=== PATIENT | female | born 2000 | race Caucasian/White ===

== ENCOUNTER 2020-01-03 12:56 | Emergency (ER) | payer OTHER ==
[~2020-01-03] VITALS: Ht 168.9 cm; Wt 87.1 kg
[2020-01-03] MEDS ORDERED: BOOSTRIX/ADACEL VACCINE (DIPHTH/PERTUSS/ACELL/TETANUS) 0.5ML SYR IM ONE (13:30)
[2020-01-03 17:25] VITALS: BP 145/77
== END 2020-01-03 17:29 | disposition home or self-care (01) ==
LOC: M ED 12:56
DX: F43.21 Adjustment disorder with depressed mood (principal); F31.89 Other bipolar disorder; F17.200 Nicotine dependence, unspecified, uncomplicated

== ENCOUNTER 2020-01-17 17:59 | Emergency (ER) | payer OTHER ==
[~2020-01-17] VITALS: Ht 172.7 cm; Wt 89.2 kg
[2020-01-17 20:11] LABS: BASO # 0.1 10^3/uL (0.0-0.2); BASO % 0.7 % (0.0-1.0); EOS # 0.5 10^3/uL (0.0-0.5); EOS % 4.2 % (0.0-3.0); HEMATOCRIT 43.6 % (36.0-47.0); HEMOGLOBIN 14.4 g/dl (12.0-15.5); LYMPH # 3.6 10^3/uL (1.5-5.0); LYMPH % 31.1 % (24.0-44.0); MEAN CORPUSCULAR HEMOGLOBIN 28.6 pg (27.0-33.0); MEAN CORPUSCULAR VOLUME 86.7 fl (80.0-96.0); MONO # 0.8 10^3/uL (0.0-0.8); MONO % 6.7 % (0.0-5.0); NEUTROPHILS # 6.5 10^3/uL (1.5-8.5); PLATELET COUNT, AUTOMATED 383 10^3/uL (150-450); RED BLOOD COUNT 5.03 10^6/uL (4.00-5.40); WHITE BLOOD COUNT 11.4 10^3/uL (4.0-10.0)
[2020-01-17] MEDS ORDERED: FLAG500T PO (21:13)
[2020-01-17] MEDS ORDERED: metroNIDAZOLE (FLAGYL) 500 MG TAB PO ONE (21:15)
[2020-01-17 21:21] VITALS: BP 131/86
[2020-01-17 21:43] LABS: CHLAMYDIA DNA AMPLIFICATION POSITIVE (NEGATIVE); GC DNA AMPLIFICATION NEGATIVE (NEGATIVE)
== END 2020-01-17 21:28 | disposition home or self-care (01) ==
LOC: M ED 17:59
DX: N76.0 Acute vaginitis (principal); F17.210 Nicotine dependence, cigarettes, uncomplicated; A56.8 Sexually transmitted chlamydial infection of other sites

== ENCOUNTER 2020-10-07 14:37 | Emergency (ER) | payer OTHER ==
[~2020-10-07] VITALS: Ht 172.7 cm; Wt 88.5 kg
[~2020-10-07 14:37] MED LIST: FLAG500T PO
[2020-10-07] MEDS ORDERED: NS 1,000 ML IV ONE (15:15)
[2020-10-07] MEDS ORDERED: KETOROLAC 30 MG/ML 1ML VIAL IV ONE (15:15)
[2020-10-07] MEDS ORDERED: ONDANSETRON 4MG/2ML VIAL IV ONE (15:15)
[2020-10-07 16:03] LABS: BASO # 0.1 10^3/uL (0.0-0.2); BASO % 0.8 % (0.0-1.0); EOS # 0.6 10^3/uL (0.0-0.5); EOS % 5.8 % (0.0-3.0); HEMATOCRIT 44.1 % (36.0-47.0); HEMOGLOBIN 14.7 g/dl (12.0-15.5); LYMPH % 30.9 % (24.0-44.0); MEAN CORPUSCULAR HEMOGLOBIN 29.6 pg (27.0-33.0); MEAN CORPUSCULAR HGB CONC 33.3 g/dl (32.0-36.5); MEAN CORPUSCULAR VOLUME 88.9 fl (80.0-96.0); MONO # 0.7 10^3/uL (0.0-0.8); MONO % 6.8 % (2.0-8.0); NEUTROPHILS # 5.3 10^3/uL (1.5-8.5); NEUTROPHILS % 55.4 % (36.0-66.0); PLATELET COUNT, AUTOMATED 357 10^3/uL (150-450); RED BLOOD COUNT 4.96 10^6/uL (4.00-5.40); WHITE BLOOD COUNT 9.5 10^3/uL (4.0-10.0)
[2020-10-07 16:26] LABS: ALBUMIN 4.4 GM/DL (3.2-5.2); ALT/SGPT 23 U/L (12-78); BILIRUBIN,DIRECT 0.1 MG/DL (0.0-0.2); BILIRUBIN,TOTAL 0.3 MG/DL (0.2-1.0); LIPASE 94 U/L (73-393); TOTAL PROTEIN 8.1 GM/DL (6.4-8.2)
[2020-10-07 17:00] LABS: HCG, SERUM QUANTITATIVE < 1.0 MIU/ML
[2020-10-07] MEDS ORDERED: ISOVUE-370 76% 100ML VIAL As Ordered ONE (17:16)
--- NOTE | 2020-10-07 17:53 | REPVR ---
PROCEDURE INFORMATION: Exam: CT Abdomen And Pelvis With Contrast Exam date and time: 10/07/2020 5:28 PM Age: 20 years old Clinical indication: Abdominal pain; Localized; Right lower quadrant (rlq); Additional info: Rlq pain TECHNIQUE: Imaging protocol: Computed tomography of the abdomen and pelvis with contrast. Axial, coronal and sagittal reformatted images were created and reviewed. Radiation optimization: All CT scans at this facility use at least one of these dose optimization techniques: automated exposure control; mA and/or kV adjustment per patient size (includes targeted exams where dose is matched to clinical indication); or iterative reconstruction. Contrast material: ISOVUE 370; Contrast volume: 75 ml; Contrast route: INTRAVENOUS (IV); COMPARISON: No relevant prior studies available. FINDINGS: Liver: Unremarkable. Gallbladder and bile ducts: Status post cholecystectomy. No biliary ductal dilatation. Pancreas: Unremarkable. Spleen: Unremarkable. Adrenal glands: Normal. No mass. Kidneys and ureters: No mass. No radiodense calculi. No hydronephrosis. Stomach and bowel: Moderate amount of retained stool in the colon. No obstruction. No bowel wall thickening. No pneumatosis. Appendix: Normal. Intraperitoneal space: No free fluid. No organized fluid collection. No free air. Vasculature: Unremarkable. No aneurysm. Lymph nodes: No pathologically enlarged lymph nodes. Urinary bladder: Unremarkable as visualized. Reproductive: 4.3 x 3 cm right adnexal cystic lesion. Bones/joints: No acute osseous abnormality. Soft tissues: Tiny, fat containing umbilical hernia. IMPRESSION: 1. 4.3 x 3 cm right adnexal cystic lesion. If clinically indicated, pelvic ultrasound may be obtained for further evaluation. 2. Additional findings, as above. Electronically signed by: Pablo Atwood On 10/07/2020 17:53:05 PM
[2020-10-07 18:54] VITALS: BP 124/73
[2020-10-08] MEDS ORDERED: MOTR200T44 PO (12:48)
[2020-10-08] MEDS ORDERED: ADDE20CA3 PO (12:48)
[2020-10-08] MEDS ORDERED: HYDR-3713 PO (15:02)
== END 2020-10-07 19:06 | disposition home or self-care (01) ==
LOC: M ED 14:37
DX: N83.291 Other ovarian cyst, right side (principal); E27.9 Disorder of adrenal gland, unspecified; E66.9 Obesity, unspecified; F41.9 Anxiety disorder, unspecified; F32.9 Major depressive disorder, single episode, unspecified; F17.200 Nicotine dependence, unspecified, uncomplicated
CPT/HCPCS: 74177; 80047; 80076; 81001; 83690; 84702; 85025; 96361; 96374; 96375; 99284; J1885; J2405; Q9967

== ENCOUNTER 2020-10-08 12:29 | Emergency (ER) | payer OTHER ==
[~2020-10-08] VITALS: Ht 172.7 cm; Wt 90.4 kg
[2020-10-08] MEDS ORDERED: MOTR200T44 PO (12:48)
[2020-10-08] MEDS ORDERED: ADDE20CA3 PO (12:48)
[2020-10-08 13:19] LABS: BASO # 0.1 10^3/uL (0.0-0.2); BASO % 0.6 % (0.0-1.0); EOS # 0.5 10^3/uL (0.0-0.5); EOS % 4.5 % (0.0-3.0); HEMATOCRIT 39.7 % (36.0-47.0); HEMOGLOBIN 13.3 g/dl (12.0-15.5); LYMPH # 2.6 10^3/uL (1.5-5.0); LYMPH % 23.2 % (24.0-44.0); MEAN CORPUSCULAR HEMOGLOBIN 29.2 pg (27.0-33.0); MEAN CORPUSCULAR HGB CONC 33.5 g/dl (32.0-36.5); MEAN CORPUSCULAR VOLUME 87.3 fl (80.0-96.0); MONO # 0.7 10^3/uL (0.0-0.8); MONO % 6.5 % (2.0-8.0); NEUTROPHILS # 7.2 10^3/uL (1.5-8.5); NEUTROPHILS % 64.8 % (36.0-66.0); PLATELET COUNT, AUTOMATED 341 10^3/uL (150-450); RED BLOOD COUNT 4.55 10^6/uL (4.00-5.40)
[2020-10-08 13:49] LABS: ALBUMIN 3.9 GM/DL (3.2-5.2); ALT/SGPT 21 U/L (12-78); BILIRUBIN,DIRECT 0.1 MG/DL (0.0-0.2); BILIRUBIN,TOTAL 0.4 MG/DL (0.2-1.0); HCG, SERUM QUANTITATIVE < 1.0 MIU/ML; LIPASE 97 U/L (73-393); TOTAL PROTEIN 7.3 GM/DL (6.4-8.2)
[2020-10-08] MEDS ORDERED: KETOROLAC 60MG 2ML VIAL IM ONE (13:50)
--- NOTE | 2020-10-08 14:05 | REP ---
INDICATION: R pelvic pain, pos HCG, 4.3 cm adnexal mass on ct yest. COMPARISON: Abdomen/pelvis CT dated 10/07/2020. TECHNIQUE: Multiple ultrasonographic images of the pelvis. FINDINGS: The uterus is anteverted and normal size measuring 7.5 x 3.0 x 5.0 cm. The endometrium is not thickened measuring up to 4 mm. There is no intrauterine gestation visible by ultrasound at this time. I note the patient has a positive HCG. Therefore, the may be too early to detect by ultrasound at this time. Alternatively, ectopic gestation is a possibility. Right ovary: The right ovary measures 4.6 x 3.0 x 3.8 cm. There is a 4.0 x 4.0 x 2.6 cm cyst in the right adnexa. No pole is identified within this cyst at this time. Left ovary: The left ovary measures 2.5 x 1.6 x 1.8 cm and is normal size. There are no left adnexal masses or cysts. There is no free fluid in the cul-de-sac. IMPRESSION: There is no identifiable intrauterine gestation as identified above. There is a 4.0 cm right adnexal cyst. No pole is identified within this cyst. However, ectopic gestation is not entirely excluded in view of the positive HCG. Close clinical follow-up is recommended with imaging as felt clinically indicated. <Electronically signed by Vicente Pardo > 10/08/20 1210
[2020-10-08] MEDS ORDERED: HYDR-3713 PO (15:02)
--- NOTE | 2020-10-08 15:09 | REP ---
INDICATION: RT SIDE OV CYST. COMPARISON: First trimester ultrasound performed earlier today TECHNIQUE: Multiple ultrasonographic images of the pelvis including Doppler assessment of the ovaries. FINDINGS: Upon discussion of the case performed previously today with the emergency room practitioner it was related to me that to the HCG laboratory test performed earlier today was a false positive and the hCG was negative upon repeating the study. The current study is performed primarily for Doppler ultrasound assessment of the ovaries. This study is performed with transvaginal technique. The uterus is anteverted and normal size measuring 7.1 x 2.9 x 4.8 cm. The endometrium is not thickened measuring 2 mm. There is no intrauterine gestation. The right ovary measures 5.0 x 3.7 x 2.0 cm and contains a 3.2 x 3.5 x 2.4 cm cyst. The Doppler resistive index of the right ovarian parenchymal arteries is a 0.71 a. There is vascular flow in the right ovary. There are no right ovary solid masses. The left ovary measures 2.7 x 2.0 x 1.8 cm and is normal size. The Doppler resistive index in the parenchymal arteries of the left ovary is 0.72. There is vascular flow in the left ovary. There are no left ovary solid or cystic masses. IMPRESSION: Right ovarian cyst as described. There is vascular flow in both ovaries. <Electronically signed by Vicente Pardo > 10/08/20 [id number]
[2020-10-08] MEDS ORDERED: NORCO, ANEXSIA 5/325MG TABLET (HYDROcodone/ACETAMINOPHEN) PO STA (15:18)
[2020-10-08 15:27] VITALS: BP 115/62
== END 2020-10-08 15:31 | disposition home or self-care (01) ==
LOC: M ED 12:29
DX: N83.299 Other ovarian cyst, unspecified side (principal); F90.9 Attention-deficit hyperactivity disorder, unspecified type; F41.9 Anxiety disorder, unspecified; F32.9 Major depressive disorder, single episode, unspecified; Z86.19 Personal history of other infectious and parasitic diseases; Z87.442 Personal history of urinary calculi; F17.200 Nicotine dependence, unspecified, uncomplicated
CPT/HCPCS: 76801; 76830; 80047; 80076; 83690; 84702; 85025; 93976; 99283; J1885

== ENCOUNTER 2020-11-03 18:16 | Emergency (ER) | payer OTHER ==
[~2020-11-03] VITALS: Ht 175.3 cm; Wt 89.0 kg
[~2020-11-03 18:16] MED LIST changes: +ADDE20CA3 PO; +HYDR-3713 PO; +MOTR200T44 PO
[2020-11-03 19:04] LABS: BASO # 0.1 10^3/uL (0.0-0.2); BASO % 0.5 % (0.0-1.0); EOS # 0.5 10^3/uL (0.0-0.5); EOS % 4.3 % (0.0-3.0); HEMATOCRIT 39.2 % (36.0-47.0); HEMOGLOBIN 12.9 g/dl (12.0-15.5); LYMPH # 3.1 10^3/uL (1.5-5.0); MEAN CORPUSCULAR HEMOGLOBIN 28.8 pg (27.0-33.0); MEAN CORPUSCULAR HGB CONC 32.9 g/dl (32.0-36.5); MEAN CORPUSCULAR VOLUME 87.5 fl (80.0-96.0); MONO # 1.1 10^3/uL (0.0-0.8); MONO % 9.3 % (2.0-8.0); NEUTROPHILS # 6.8 10^3/uL (1.5-8.5); NEUTROPHILS % 58.6 % (36.0-66.0); PLATELET COUNT, AUTOMATED 307 10^3/uL (150-450); RED BLOOD COUNT 4.48 10^6/uL (4.00-5.40); WHITE BLOOD COUNT 11.6 10^3/uL (4.0-10.0)
[2020-11-03 19:34] LABS: ALT/SGPT 24 U/L (12-78); AMYLASE 49 U/L (25-115); BILIRUBIN,DIRECT < 0.1 MG/DL (0.0-0.2); BILIRUBIN,TOTAL 0.2 MG/DL (0.2-1.0); BLOOD UREA NITROGEN 11 MG/DL (7-18); CALCIUM LEVEL 9.2 MG/DL (8.5-10.1); CARBON DIOXIDE LEVEL 24 MEQ/L (21-32); CHLORIDE LEVEL 111 MEQ/L (98-107); CREATININE FOR GFR 0.73 MG/DL (0.55-1.30); GLUCOSE, FASTING 95 MG/DL (70-100); LIPASE 95 U/L (73-393); SODIUM LEVEL 141 MEQ/L (136-145); TOTAL PROTEIN 7.6 GM/DL (6.4-8.2)
[2020-11-03 23:54] LABS: HCG, SERUM QUALITATIVE NEGATIVE (NEGATIVE)
--- NOTE | 2020-11-04 01:01 | REPVR ---
PROCEDURE INFORMATION: Exam: US Pelvis Complete, Transabdominal and US Pelvis, Transvaginal and US Duplex Artery and Vein, Ovaries, Complete Exam date and time: 11/03/2020 12:17 AM Age: 20 years old Clinical indication: Pelvic pain; Additional info: Right lower quadrant pain TECHNIQUE: Imaging protocol: Real-time transabdominal and transvaginal pelvic ultrasound (complete) with image documentation. Transvaginal imaging was used for better evaluation of the endometrium, adnexa, and/or cervix. Real-time duplex ultrasound scan of the arterial and venous flow of the ovaries with B-mode, color Doppler flow and spectral waveform analysis. COMPARISON: Transvaginal NON- US 10/08/2020 2:38 PM FINDINGS: Uterus/cervix: Uterus measures 6.8 x 2.8 x 4 cm. Endometrial stripe is approximately 7 mm. Right adnexa: Right ovary measures 2.6 x 3.7 x 2.9 cm. Previously seen right ovarian cyst has resolved. Normal waveforms Left adnexa: Left ovary measures 3.4 x 2.5 x 2 cm. Normal waveforms Intraperitoneal space: No intraperitoneal fluid. Urinary bladder: Normal. Appendix: Appendix is not visualized, obscured by bowel gas. IMPRESSION: No evidence of ovarian torsion bilaterally. Previously seen right ovarian cyst has resolved. Appendix is not visualized, obscured by bowel gas. Electronically signed by: Luis Higginbotham On 11/04/2020 01:02:18 AM
[2020-11-04 01:27] LABS: CHLAMYDIA DNA AMPLIFICATION NEGATIVE (NEGATIVE); GC DNA AMPLIFICATION NEGATIVE (NEGATIVE)
[2020-11-04 02:04] VITALS: BP 124/79
== END 2020-11-04 02:08 | disposition home or self-care (01) ==
LOC: M ED 18:16
DX: N89.8 Other specified noninflammatory disorders of vagina (principal); R10.31 Right lower quadrant pain; F17.200 Nicotine dependence, unspecified, uncomplicated

== ENCOUNTER 2020-12-01 08:59 | Emergency (ER) | payer OTHER ==
[~2020-12-01] VITALS: Ht 175.3 cm; Wt 92.0 kg
[2020-12-01] MEDS ORDERED: NS 1,000 ML IV ONE (11:35)
[2020-12-01] MEDS ORDERED: KETOROLAC 30 MG/ML 1ML VIAL IV ONE (11:35)
[2020-12-01 11:37] LABS: URINE PREG TEST NEGATIVE (NEGATIVE)
--- NOTE | 2020-12-01 12:06 | REP ---
INDICATION: right flank pain and hematuria COMPARISON: 10/07/2020. TECHNIQUE: CT Scan of the abdomen and pelvis was performed without intravenous contrast. Sagittal and coronal reconstruction images performed. FINDINGS: Lung bases: Unremarkable. Liver: Grossly unremarkable. Gallbladder: Prior cholecystectomy. Spleen: Grossly unremarkable. Adrenals: Normal. Pancreas: Grossly unremarkable.. Kidneys: No hydronephrosis or nephrolithiasis. Ureters demonstrate no dilatation or calculus. Small and large bowel: Grossly unremarkable. Free fluid: None. Abdominal aorta: No aneurysm. Adenopathy: None. Appendix: Not inflamed. Osseous structures: Unremarkable. Pelvis: No mass. No bladder calculus seen. IMPRESSION: Negative non-contrast CT abdomen and pelvis. <Electronically signed by Vicente Schultz > 12/01/20 1200
[2020-12-01 12:22] LABS: BASO # 0.1 10^3/uL (0.0-0.2); BASO % 0.6 % (0.0-1.0); EOS # 0.4 10^3/uL (0.0-0.5); EOS % 2.8 % (0.0-3.0); HEMATOCRIT 41.1 % (36.0-47.0); HEMOGLOBIN 13.6 g/dl (12.0-15.5); LYMPH # 2.8 10^3/uL (1.5-5.0); LYMPH % 19.2 % (24.0-44.0); MEAN CORPUSCULAR HEMOGLOBIN 28.9 pg (27.0-33.0); MEAN CORPUSCULAR HGB CONC 33.1 g/dl (32.0-36.5); MEAN CORPUSCULAR VOLUME 87.3 fl (80.0-96.0); MONO # 0.8 10^3/uL (0.0-0.8); MONO % 5.7 % (2.0-8.0); NEUTROPHILS # 10.3 10^3/uL (1.5-8.5); NEUTROPHILS % 71.1 % (36.0-66.0); PLATELET COUNT, AUTOMATED 336 10^3/uL (150-450); RED BLOOD COUNT 4.71 10^6/uL (4.00-5.40); WHITE BLOOD COUNT 14.5 10^3/uL (4.0-10.0)
[2020-12-01] MEDS ORDERED: LIDOCAINE 1% SDV 5ML VIAL DILUENT ONE (12:45)
[2020-12-01] MEDS ORDERED: cefTRIAXone SOD 1GM VIAL (J0696 PER 250MG) IM ONE (12:45)
[2020-12-01 12:48] LABS: ALBUMIN 4.2 GM/DL (3.2-5.2); ALT/SGPT 27 U/L (12-78); BILIRUBIN,TOTAL 0.6 MG/DL (0.2-1.0); BLOOD UREA NITROGEN 10 MG/DL (7-18); CALCIUM LEVEL 9.6 MG/DL (8.5-10.1); CARBON DIOXIDE LEVEL 27 MEQ/L (21-32); CHLORIDE LEVEL 106 MEQ/L (98-107); CREATININE FOR GFR 0.65 MG/DL (0.55-1.30); GLUCOSE, FASTING 75 MG/DL (70-100); POTASSIUM SERUM 4.1 MEQ/L (3.5-5.1); SODIUM LEVEL 139 MEQ/L (136-145); TOTAL PROTEIN 7.8 GM/DL (6.4-8.2)
[2020-12-01] MEDS ORDERED: ZOFR4TAB16 PO (12:48)
[2020-12-01] MEDS ORDERED: MACR100C43 PO (12:48)
[2020-12-01 13:30] VITALS: BP 118/71
== END 2020-12-01 13:31 | disposition home or self-care (01) ==
LOC: M ED 08:59
DX: N10 Acute pyelonephritis (principal); Z87.448 Personal history of other diseases of urinary system; F17.200 Nicotine dependence, unspecified, uncomplicated; Z79.899 Other long term (current) drug therapy
CPT/HCPCS: 74176; 80053; 81001; 84703; 85025; 87086; 96361; 96372; 96374; 99284; J0696; J1885

== ENCOUNTER 2021-06-27 13:09 | Emergency (ER) | payer OTHER ==
[~2021-06-27] VITALS: Ht 172.7 cm; Wt 96.8 kg
[~2021-06-27 13:09] MED LIST changes: +MACR100C43 PO; +ZOFR4TAB16 PO
--- OUTSIDE RECORDS SUMMARY | 2021-06-27 13:15 | CCD ---
Author Author [facility] Organization [facility] Address Unknown Phone Unavailable Care Team Providers Care Swimming Pool Salesperson Name Role Phone Maring, Jd PA Unavailable Unavailable Maring, Jd PA Unavailable Unavailable Maring, Jd PA Unavailable Unavailable Maring, Jd PA Unavailable Unavailable Maring, Jd PA Unavailable Unavailable Maring, Jd PA Unavailable Unavailable Maring, Jd PA Unavailable Unavailable Maring, Jd PA Unavailable Unavailable Maring, Jd PA Unavailable Unavailable Maring, Jd PA Unavailable Unavailable Maring, Jd PA Unavailable Unavailable Maring, Jd PA Unavailable Unavailable Maring, Jd PA Unavailable Unavailable Maring, Jd PA Unavailable Unavailable Maring, Jd PA Unavailable Unavailable Maring, Jd PA Unavailable Unavailable Kennedy Calloway MD Unavailable Unavailable Kennedy Calloway MD Unavailable Unavailable Kennedy Calloway MD Unavailable Unavailable Kennedy Calloway MD Unavailable Unavailable Kennedy Calloway MD Unavailable Unavailable Kennedy Calloway MD Unavailable Unavailable Kennedy Calloway MD Unavailable Unavailable Kennedy Calloway MD Unavailable Unavailable Kennedy Calloway MD Unavailable Unavailable Kennedy Calloway MD Unavailable Unavailable Kennedy Calloway MD Unavailable Unavailable Kennedy Calloway MD Unavailable Unavailable Kennedy Calloway MD Unavailable Unavailable Kennedy Calloway MD Unavailable Unavailable Kennedy Calloway MD Unavailable Unavailable Kennedy Calloway MD Unavailable Unavailable Kennedy Calloway MD Unavailable Unavailable Kennedy Calloway MD Unavailable Unavailable Kennedy Calloway MD Unavailable Unavailable Kennedy Calloway MD Unavailable Unavailable Kennedy Calloway MD Unavailable Unavailable Kennedy Calloway MD Unavailable Unavailable Kennedy Calloway MD Unavailable Unavailable Kennedy Calloway MD Unavailable Unavailable Kennedy Calloway MD Unavailable Unavailable Re-disclosure Warning The records that you are about to access may contain information from federally-assisted alcohol or drug abuse programs. If such information is present, then the following federally mandated warning applies: This information has been disclosed to you from records protected by federal confidentiality rules (42 CFR part 2). The federal rules prohibit you from making any further disclosure of this information unless further disclosure is expressly permitted by the written consent of the person to whom it pertains or as otherwise permitted by 42 CFR part 2. A general authorization for the release of medical or other information is NOT sufficient for this purpose. The Federal rules restrict any use of the information to criminally investigate or prosecute any alcohol or drug abuse patient.The records that you are about to access may contain highly sensitive health information, the redisclosure of which is protected by Article 27-F of the [facility] Public Health law. If you continue you may have access to information: Regarding HIV / AIDS; Provided by facilities licensed or operated by the [facility] Office of Mental Health; or Provided by the [facility] Office for People With Developmental Disabilities. If such information is present, then the following [facility] mandated warning applies: This information has been disclosed to you from confidential records which are protected by state law. State law prohibits you from making any further disclosure of this information without the specific written consent of the person to whom it pertains, or as otherwise permitted by law. Any unauthorized further disclosure in violation of state law may result in a fine or mcc sentence or both. A general authorization for the release of medical or other information is NOT sufficient authorization for further disc losure. Encounters Encounter Providers Location Date Indications Data Source(s ) Outpatient Attender: Bhavana Calloway MD 1 12:42:31 PM EDT - 05/20/2021 01:41:00 PM EDT [facility] ([facility]) Outpatient Attender: Jd MONDRAGON 11/16/19 02:44:17 PM EDT - 11/15/2020 03:26:37 PM EDT [facility] ([facility] ) Outpatient 10/07/2020 02:10:20 PM EDT [facility] ([facility]) Outpatient Attender: Jd MONDRAGON 09/19/19 10:47:12 AM EST - 09/19/2020 11:13:08 AM EST [facility] ([facility] ) Medications No Information Insurance Providers Payer name Policy type / Coverage type Policy ID Covered libertarian ID Covered libertarian's relationship to rivera Policy Rivera Plan Information [employer] HUMANA [id number] [facility] [id number] / [id number] Self 01 [id number] [facility] [id number] [employer] HUMANA [id number] 2 [id number] [facility] HUMANA - O/P [id number] Problems, Conditions, and Diagnoses No Information Surgeries/Procedures No Information Results ID Date Data Source [id number] 05/20/2021 01:15:00 PM EDT [facility] Name Value Range Interpretation Code Description Data Elise rce(s) Supporting Document(s) SARS-CoV-2 RNA Resp Ql SARAH+probe NOT DETECTED [facility] This lab was ordered by YANIRA palacios and reported by YANIRA Gilbert. ID Date Data Source [id number] 11/18/2020 06:38:00 PM EDT [facility] Name Value Range Interpretation Code Description Data Elise rce(s) Supporting Document(s) COVID-19 RT-PCR NASAL SWAB Not Detected Not Detected [facility] A not detected (negative) test result fo r this test means that SARS-CoV-2 RNA was not present in the specimen above the limit ofdetection. Laboratory test results should always be considered in thecontext of clinical observations and epidemiological data in making afinal diagnosis and patient management decisions. Results will bereported to government agencies as required.This test has received Emergency Use Authorization (EUA). We will continue to follow federal and state requirements for COVID-19 reporting. This test has been authorized only for the detection of RNAfrom SARS-CoV-2 virus and diagnosis of SARS-CoV-2 virus infection, notfor any other viruses or pathogens. This test is only authorized for the duration of the declaration that circumstances exist justifying the authorization of the emergency use of in vitro diagnostic tests for detection of SARS-CoV-2 virus and/or diagnosis of SARS-CoV-2 virusinfection under section 564(b)(1) of the Act, 21 U.S.C. section 360bbb-3(b)(1), unless the authorization is terminated or revoked sooner. We will continue to follow federal and state requirements for both notification of results and any confirmatory testing that is required by another agency. This test was developed and its performance characteristics determined by [employer] and verified at [facility]. It has not been cleared or approved by the U.S. Food and Drug Administration for diagnostic use. This test has been authorized by FDA under an EUA for use by authorized laboratories. Results should be used in conjunction with clinical findings, and should not form the sole basis for a diagnosis or treatment decision. Methods: SARS-CoV-2 Multiplex RT-PCR Assay ID Date Data Source [id number] 11/15/2020 03:00:00 PM EDT [facility] Name Value Range Interpretation Code Description Data Elise rce(s) Supporting Document(s) SARS-CoV-2 (COVID-19) N gene [Presence] in Respiratory specimen by SARAH with probe detection NEGATIVE [facility] This lab was ordered by Vladimir Bermudez and reported by [facility]. ID Date Data Source [id number] 11/15/2020 12:00:00 AM EDT [facility] Name Value Range Interpretation Code Description Data Elise rce(s) Supporting Document(s) C[facility] Rapid COVID Antigen Test Negative [facility] This lab was reported by Vladimir guzmán. Procedure Social History No Information
[2021-06-27] MEDS ORDERED: LOES1TAB7 PO (13:21)
--- OUTSIDE RECORDS SUMMARY | 2021-06-27 14:24 | CCD ---
Author Author [facility] Organization [facility] Address Unknown Phone Unavailable Care Team Providers Care Satellite Tv Technician Name Role Phone Maring, Jd PA Unavailable [...] is protected by Article 27-F of the [facility] Public Health law. If you continue you may have access to information: Regarding HIV / AIDS; Provided by facilities licensed or operated by the [facility] Office of Mental Health; or Provided by the [facility] Office for People With Developmental Disabilities. If such information is present, then the following [facility] mandated warning applies: This information has been [...] law may result in a fine or chcf sentence or both. A general authorization for [...] ) Outpatient 10/07/2020 02:10:20 PM EDT [facility] ([facility]) Outpatient Attender: Jd MONDRAGON 09/19/19 10:47:12 AM EST - 09/19/2020 11:13:08 AM EST [facility] ([facility] ) Medications No Information Insurance Providers Payer name Policy type / Coverage type Policy ID Covered alliance party ID Covered alliance party's relationship to rivera Policy Rivera Plan Information [employer] HUMANA [id number] [facility] [id number] / [id number] Self 01 [id number] [employer] HUMANA [id number] [facility] [id number] [employer] HUMANA [id number] [facility] HUMANA - O/P [id number] Problems, Conditions, and Diagnoses No Information Surgeries/Procedures No Information Results ID Date Data Source [id number] 05/20/2021 01:15:00 PM EDT [facility] Name Value Range Interpretation Code Description Data Elise rce(s) Supporting Document(s) SARS-CoV-2 RNA Resp Ql SARAH+probe NOT DETECTED [facility] This lab was ordered by YANIRA palacios and reported by YANIRA Gilbert. ID Date Data Source [id number] 11/18/2020 06:38:00 PM EDT [facility] Name Value Range Interpretation Code Description Data Elise rce(s) Supporting Document(s) COVID-19 RT-PCR NASAL SWAB Not Detected Not Detected [facility] A not detected (negative) test [...] developed and its performance characteristics determined by [employer] and verified at [facility]. It has not been cleared or approved by the U.S. Food and Drug Administration for diagnostic use. This test has been authorized by FDA under an EUA for use by authorized laboratories. Results should be used in conjunction with clinical findings, and should not form the sole basis for a diagnosis or treatment decision. Methods: SARS-CoV-2 Multiplex RT-PCR Assay ID Date Data Source [id number] 11/15/2020 03:00:00 PM EDT [facility] Name Value Range Interpretation Code Description Data Elise rce(s) Supporting Document(s) SARS-CoV-2 (COVID-19) N gene [Presence] in Respiratory specimen by SARAH with probe detection NEGATIVE [facility] This lab was ordered by Vladimir [facility] and reported by [facility]. ID Date Data Source [id number] 11/15/2020 12:00:00 AM EDT [facility] Name Value Range Interpretation Code Description Data Elise rce(s) Supporting Document(s) Carestart Rapid COVID Antigen Test Negative [facility] This lab was reported by Vladimir Meliza guzmán. Procedure Social History No Information
[2021-06-27 14:42] LABS: BASO # 0.1 10^3/uL (0.0-0.2); BASO % 0.5 % (0.0-1.0); EOS # 0.2 10^3/uL (0.0-0.5); EOS % 1.5 % (0.0-3.0); HEMATOCRIT 39.7 % (36.0-47.0); HEMOGLOBIN 12.9 g/dl (12.0-15.5); LYMPH # 2.3 10^3/uL (1.5-5.0); LYMPH % 22.9 % (24.0-44.0); MEAN CORPUSCULAR HEMOGLOBIN 28.5 pg (27.0-33.0); MEAN CORPUSCULAR HGB CONC 32.5 g/dl (32.0-36.5); MEAN CORPUSCULAR VOLUME 87.8 fl (80.0-96.0); MONO # 0.7 10^3/uL (0.0-0.8); MONO % 6.6 % (2.0-8.0); NEUTROPHILS % 68.2 % (36.0-66.0); PLATELET COUNT, AUTOMATED 356 10^3/uL (150-450); RED BLOOD COUNT 4.52 10^6/uL (4.00-5.40); WHITE BLOOD COUNT 10.2 10^3/uL (4.0-10.0)
[2021-06-27 15:07] LABS: ALBUMIN 3.5 GM/DL (3.2-5.2); ALT/SGPT 35 U/L (12-78); BILIRUBIN,DIRECT < 0.1 MG/DL (0.0-0.2); BILIRUBIN,TOTAL 0.2 MG/DL (0.2-1.0); BLOOD UREA NITROGEN 9 MG/DL (7-18); CALCIUM LEVEL 8.7 MG/DL (8.5-10.1); CARBON DIOXIDE LEVEL 27 MEQ/L (21-32); CHLORIDE LEVEL 109 MEQ/L (98-107); GLOMERULAR FILTRATION RATE > 60.0 (>60); GLUCOSE, FASTING 102 MG/DL (70-100); HCG, SERUM QUANTITATIVE < 1.0 MIU/ML; LIPASE 63 U/L (73-393); POTASSIUM SERUM 4.2 MEQ/L (3.5-5.1); SODIUM LEVEL 143 MEQ/L (136-145); TOTAL PROTEIN 7.4 GM/DL (6.4-8.2)
[2021-06-27] MEDS ORDERED: PANTOPRAZOLE 40MG VIAL (C9113 PER 1) IV ONE (15:15)
[2021-06-27] MEDS ORDERED: GI COCKTAIL 50ML BTL(HYOSCYAMINE/MAALOX/LIDOCAINE VISCOUS)(1:3:1) PO ONE (15:15)
[2021-06-27] MEDS ORDERED: SUCR1TA PO (16:20)
[2021-06-27 16:30] VITALS: BP 122/75
== END 2021-06-27 16:32 | disposition home or self-care (01) ==
LOC: M ED 13:09
DX: R10.84 Generalized abdominal pain (principal); G89.29 Other chronic pain; N83.209 Unspecified ovarian cyst, unspecified side; F17.200 Nicotine dependence, unspecified, uncomplicated
CPT/HCPCS: 80048; 80076; 83690; 84702; 85025; 96374; 99284; C9113

== ENCOUNTER 2025-01-22 20:13 | Emergency (ER) | payer OTHER ==
[~2025-01-22 20:13] MED LIST changes: +LOES1TAB7 PO; +SUCR1TA PO
[2025-01-22] MEDS ORDERED: TUMS500C PO (20:38)
[2025-01-22] MEDS ORDERED: PRENTAB9 PO (20:38)
== END 2025-01-22 21:00 | disposition admitted as inpatient to this hospital (09) ==
LOC: M ED 20:13
DX: Z53.21 Procedure and treatment not carried out due to patient leaving prior to being seen by health care provider (principal)

== ENCOUNTER 2025-01-22 20:21 | Outpatient (CLI) | payer SELFPAY ==
[~2025-01-22] VITALS: Ht 177.8 cm; Wt 90.0 kg
[2025-01-22 20:38] VITALS: BP 112/66
[2025-01-22] MEDS ORDERED: TUMS500C PO (20:38)
[2025-01-22] MEDS ORDERED: PRENTAB9 PO (20:38)
[2025-01-22 21:41] LABS: APPEARANCE, URINE CLEAR (CLEAR); BACTERIA, URINE AUTO 2+ (NEGATIVE); BILIRUBIN, URINE AUTO NEGATIVE (NEGATIVE); BLOOD, URINE BLOOD NEGATIVE (NEGATIVE); GLUCOSE, URINE (UA) AUTO NEGATIVE (NEGATIVE); KETONE, URINE AUTO NEGATIVE (NEGATIVE); LEUKOCYTE ESTERASE, URINE AUTO TRACE (NEGATIVE); MUCUS, URINE SMALL (NEGATIVE); NITRITE, URINE AUTO NEGATIVE (NEGATIVE); PROTEIN, URINE AUTO NEGATIVE (NEGATIVE); RBC, URINE AUTO 1 /HPF (0-3); SPECIFIC GRAVITY URINE AUTO 1.005 (1.002-1.035); SQUAMOUS EPITHELIAL CELL UR AU 2 /HPF (0-6); UROBILINOGEN, URINE AUTO 0.2 mg/dL (0.0-2.0); WBC, URINE AUTO 2 /HPF (0-3)
== END 2025-01-22 21:53 | disposition home or self-care (01) ==
LOC: M LDO 20:21
PROVIDERS: ATTEND Specialist
DX: O36.8120 Decreased fetal movements, second trimester, not applicable or unspecified (principal); Z3A.25 25 weeks gestation of pregnancy
CPT/HCPCS: 59025; 81001; G0463